=== PATIENT | female | born 1950 | race Caucasian/White ===

== ENCOUNTER → 2018-05-30 11:09 | Outpatient (CLI) | payer MEDICARE ==
[2009-12-17 20:08] VITALS: BMI 22.5
== END | disposition home or self-care (01) ==
LOC: D.HCCARDIO 11:09
DX: R07.9 Chest pain, unspecified (principal); I25.10 Atherosclerotic heart disease of native coronary artery without angina pectoris; I10 Essential (primary) hypertension

== ENCOUNTER → 2020-01-09 13:32 | Outpatient (CLI) | payer MEDICARE ==
[2009-12-17 20:08] VITALS: BMI 22.5
== END | disposition home or self-care (01) ==
LOC: D.HCCECHO 13:32
PROVIDERS: ATTEND Internal Medicine Cardiovascular Disease
DX: I25.10 Atherosclerotic heart disease of native coronary artery without angina pectoris (principal)